=== PATIENT | male | born 1990 | race Caucasian/White ===

== ENCOUNTER 2024-03-03 13:02 | Emergency (ER) | payer OTHER ==
[~2024-03-03] VITALS: Ht 185.4 cm; Wt 90.7 kg
[2024-03-03 13:14] VITALS: BP 121/87; TEMP 98
[2024-03-03] MEDS ORDERED: BACI500P4 TP (13:37)
[2024-03-03 14:06] VITALS: O2SAT 98
== END 2024-03-03 14:06 | disposition home or self-care (01) ==
LOC: ER 13:08
DX: S90.425A Blister (nonthermal), left lesser toe(s), initial encounter (principal); X58.XXXA Exposure to other specified factors, initial encounter; Y93.89 Activity, other specified; Y92.89 Other specified places as the place of occurrence of the external cause; Y99.8 Other external cause status